=== PATIENT | male | born 1940 | race Two or more races ===

== ENCOUNTER 2021-09-26 09:37 | Outpatient (RCR) | payer MEDICARE, SELFPAY | END 2021-10-03 10:19 | disposition home or self-care (01) | LOC: HO.WCC 09:37 | PROVIDERS: PCP Internal Medicine; Visit Provider Surgery | DX: Z09 Encounter for follow-up examination after completed treatment for conditions other than malignant neoplasm (principal); E11.9 Type 2 diabetes mellitus without complications; A49.02 Methicillin resistant Staphylococcus aureus infection, unspecified site; Z86.31 Personal history of diabetic foot ulcer; Z79.2 Long term (current) use of antibiotics | CPT/HCPCS: 99213 ==